=== PATIENT | male | born 1975 | race Caucasian/White ===

== ENCOUNTER 2022-05-25 16:20 | Emergency (ER) | payer OTHER, MEDICAID ==
[~2022-05-25] VITALS: Ht 185.4 cm; Wt 79.0 kg
[2022-05-25 17:05] VITALS: BP 142/90
[2022-05-25] MEDS ORDERED: ORPH100T2 PO (17:44)
[2022-05-25] MEDS ORDERED: NAPR-56 PO (17:44)
[2022-05-25] MEDS ORDERED: ketorolac trometh inj. 60 MG/2 ML VIAL IM ONE (17:45)
[2022-05-25] MEDS ORDERED: orphenadrine citrate 60mg/2ml inj. IM ONE (17:45)
[2022-05-25] MEDS ORDERED: HYDROcodone/acetaminophen 5mg/325mg tablet PO ONE (17:45)
== END 2022-05-25 18:11 | disposition home or self-care (01) ==
LOC: ER 16:21
DX: S16.1XXA Strain of muscle, fascia and tendon at neck level, initial encounter (principal); S13.4XXA Sprain of ligaments of cervical spine, initial encounter; R51.9 Headache, unspecified; M54.2 Cervicalgia; Z79.899 Other long term (current) drug therapy; V99.XXXA Unspecified transport accident, initial encounter; Y93.89 Activity, other specified; Y92.89 Other specified places as the place of occurrence of the external cause; Y99.8 Other external cause status
CPT/HCPCS: 96372; 99284; J1885; J2360

== ENCOUNTER 2022-06-25 09:06 | Emergency (ER) | payer OTHER, MEDICAID ==
[~2022-06-25] VITALS: Ht 185.4 cm; Wt 79.5 kg
[~2022-06-25 09:06] MED LIST: NAPR-56 PO; ORPH100T2 PO
[2022-06-25 09:13] VITALS: BP 135/99
[2022-06-25] MEDS ORDERED: ketorolac tromethamine 15mg/ml inj. IM ONE (09:35)
[2022-06-25] MEDS ORDERED: diazepam 5mg tablet PO ONE (09:35)
[2022-06-25] MEDS ORDERED: ORPH100T2 PO (10:29)
[2022-06-25] MEDS ORDERED: PRED20TA PO (10:29)
[2022-06-25] MEDS ORDERED: IBUP-1984 PO (10:29)
== END 2022-06-25 10:59 | disposition home or self-care (01) ==
LOC: ER 09:06
DX: M54.2 Cervicalgia (principal); Z79.899 Other long term (current) drug therapy; V98.8XXA Other specified transport accidents, initial encounter; Y93.89 Activity, other specified; Y92.89 Other specified places as the place of occurrence of the external cause; Y99.8 Other external cause status
CPT/HCPCS: 72125; 96372; 99284; J1885